=== PATIENT | male | born 1985 | race Two or more races ===

== ENCOUNTER 2023-02-03 20:30 | Emergency (ER) | payer OTHER ==
[~2023-02-03] VITALS: Ht 172.7 cm; Wt 76.2 kg
[2023-02-03] MEDS ORDERED: MILLIPRED5 MG PO (20:39)
== END 2023-02-03 22:02 | disposition home or self-care (01) ==
LOC: ER 20:30
DX: M62.830 Muscle spasm of back (principal); Z88.6 Allergy status to analgesic agent